=== PATIENT | female | born 1970 | race African-American/Black ===

== ENCOUNTER 2018-03-30 15:46 | Emergency (ER) | payer SELFPAY ==
[2018-03-30] MEDS ORDERED: Diph,Pert(Acell),Tet Vac 0.5 ML SYR IM ONE (15:56)
--- NOTE | 2018-03-30 16:02 | Emergency Department Record ---
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 She has a small laceration to the index finger. She currently denies numbness, weakness or loss of ROM. She is unsure of her last tetanus shot. She is right handed. Onset/Timin -: Hour(s) Extremity Location: Left: Hand (Index finger) Place: Work Context: Accidental Associated Symptoms: None Treatments Prior to Arrival: Bandage - [place] Coma Scale Eye Response: (4) Open spontaneously Motor Response: (6) Obeys commands Verbal Response: (5) Oriented [place] Total: 15 - Related Data Home Medications Medication Instructions Recorded Confirmed Last Taken Enalapril Maleate 10 mg PO DAILY 03/30/18 03/30/18 Unknown Metoprolol Succinate 100 mg PO DAILY 03/30/18 03/30/18 Unknown Allergies Allergy/AdvReac Type Severity Reaction Status Date / Time No Known Drug Allergies Allergy Verified 03/30/18 15:51 Travel Screening - Travel/Exposure Within Last 30 Days Have you traveled within the last 30 days?: No Review of Systems Constitutional: Denies: Chills, Fever, Weakness Eyes: Denies: Eye discharge ENT: Denies: Congestion, Throat pain Respiratory: Denies: Cough Cardiovascular: Denies: Chest pain, Syncope Endocrine: Denies: Fatigue Gastrointestinal: Denies: Abdominal pain, Diarrhea, Nausea, Vomiting Genitourinary: Denies: Dysuria, Urgency Musculoskeletal: Denies: Arthralgia, Back pain, Joint swelling, Myalgia Skin: Reports: Other (Laceration 4mm left index). Denies: Bruising, Rash Neurological: Denies: Numbness, Tingling, Weakness Psychiatric: Reports: Anxiety Hematological/Lymphatic: Denies: Blood Clots, Easy bleeding, Easy bruising, Swollen glands Physical Exam - General General Appearance: Alert, Oriented x3, Cooperative, No acute distress Limitations: No limitations - Head Head exam: Atraumatic, Normal inspection - Eye Eye exam: Normal appearance. negative: Conjunctival injection - ENT ENT exam: Normal exam, Mucous membranes moist Ear exam: Normal external inspection Nasal Exam: Normal inspection Mouth exam: Normal external inspection - Neck Neck exam: Normal inspection - Cardiovascular Cardiovascular Exam: Regular rate Peripheral Pulses: 2+: Radial (L) - Extremities Extremities exam: Full ROM, Normal capillary refill. negative: Normal inspection, Tenderness Image of Finger Tip: 1 - 4mm laceration just distal to the extensor crease, clean, linear - Neurological Neurological exam: Alert, Oriented X3 - Psychiatric Psychiatric exam: Normal affect, Normal mood - Skin Type of lesion: Laceration Course Vital Signs 03/30/18 15:52 Temperature 97.5 F L Pulse Rate 68 Respiratory 18 Rate Blood Pressure 132/77 Pulse Ox 98 - Reevaluation(s) Reevaluation #1: Digital Block Betadine Skin Prep Sensorcaine 3.5ml XR ordered due to power tool involved Tetanus updated. 03/30/18 16:01 03/30/18 16:44 The prelim XR was reviewed No obvious FB or bony injury The skin was prepped with betadine then copious irrigated The skin was dried Dermabond was used for the very small linear injury to the skin for protection and healing. 03/30/18 16:47 The final XR read by radiology was negative for fx or fb. Disposition Disposition: Discharge Clinical Impression: Finger laceration Qualifiers: Encounter type: initial encounter Finger: index finger Damage to nail status: unspecified Foreign body presence: without foreign body Laterality: left Qualified Code(s): S61.211A - Laceration without foreign body of left index finger without damage to nail, initial encounter Disposition: Home, Self-Care Condition: (1) Good Instructions: Laceration (ED), Skin Adhesive Care (ED) Additional Instructions: Return to the ED if pain, pus, redness, swelling or any new concerns with the healing of the laceration Forms: Patient Portal Access Time of Disposition: 16:45 Quality - Quality Measures Quality Measures: N/A - Blood Pressure Screening Does Patient Have Any of the Following: No Blood Pressure Classification: Pre-Hypertensive BP Reading Systolic Measurement: 132 Diastolic Measurement: 77 Screening for High Blood Pressure: < Pre-Hypertensive BP, F/U Documented > [ [id number]] Pre-Hypertensive Follow-up Interventions: Referral to alternative/primary care provider.
--- NOTE | 2018-04-02 07:42 | RADIOLOGY REPORT ---
EXAM: LEFT SECOND DIGIT HISTORY: INJURY. TECHNIQUE: Three views of the left second digit were performed. FINDINGS: No evidence of fracture or dislocation. No radiopaque foreign body. IMPRESSION: NEGATIVE FOR FRACTURE OR RADIOPAQUE FOREIGN BODY. JOB NUMBER: [id number] MTDD
== END 2018-03-30 17:22 | disposition home or self-care (01) ==
LOC: ER 15:46
DX: S61.211A Laceration without foreign body of left index finger without damage to nail, initial encounter (principal); W29.8XXA Contact with other powered hand tools and household machinery, initial encounter; Y99.0 Civilian activity done for income or pay
CPT/HCPCS: 73140; 90715; 96372; 99283; 99284